=== PATIENT | female | born 1990 | race Caucasian/White ===

== ENCOUNTER 2025-04-16 11:35 | Inpatient (IN) | payer MEDICAID, OTHER ==
[2025-04-16] VITALS (14 sets, daily range): BP systolic 68–144; BP diastolic 29–79; PULSE 39–146; RESP 14–46; TEMP 36.6–37.1; O2SAT 78–94
[~2025-04-16] VITALS: Ht 157.5 cm; Wt 51.7 kg
[~2025-04-16 11:35] MED LIST: ACET-2708 PO; ALBU90AE IH; FAMO20TA8 PO; FURO-151 MT; LEVA0.635 IH; LORA-250; P20 MT; POTA-205 MT; PROM6.2527 PO; TRAM50TA3 PO
[2025-04-16] MEDS ORDERED: IPRATROPIUM/ALBUTEROL 0.5-3(2.5)MG/3ML NEB HHN ONE (12:00)
[2025-04-16] MEDS: SODIUM CHLORIDE 0.9% 1,000 ML IV ONE ×2 (12:06→13:57)
[2025-04-16] MEDS: VANCOMYCIN 1G PREMIX 200 ML IV ONE (12:06)
[2025-04-16] MEDS: MIDAZOLAM HCL 2 MG/2 ML VIAL IV ONE ×2 (12:07→14:35)
[2025-04-16] MEDS: PIPERACILLIN/TAZO 3.375G/50ML 50 ML IV ONE (12:08)
[2025-04-16 12:09] LABS: BASOPHILS % 0.3 % (0.0-2.0); EOSINOPHILS % 0.4 % (0.0-5.0); HEMATOCRIT. 47.3 % (36.0-48.0); HEMOGLOBIN. 14.9 g/dL (12.0-16.0); LYMPHOCYTES % 7.8 % (20.0-50.0); MEAN CORPUSCULAR HEMOGLOBIN 26.2 pg (28.0-32.0); MEAN CORPUSCULAR HGB CONC 31.5 g/dL (31.0-37.0); MEAN CORPUSCULAR VOLUME 83.2 fL (81.0-99.0); MEAN PLATELET VOLUME 9.4 fl (7.4-10.4); MONOCYTES % 4.5 % (2.0-8.0); PLATELET 419 x1000/uL (130-400); RED BLOOD CELL COUNT 5.68 mill/uL (4.2-5.4); RED CELL DISTRIBUTION WIDTH 17.9 % (11.6-14.6); WHITE BLOOD COUNT 17.8 x1000/uL (4.5-11.0)
[2025-04-16 12:32] LABS: D-DIMER 14.02 mg/L FEU (<0.50); INR 1.2; PROTHROMBIN TIME 13.1 sec (9.6-11.0)
[2025-04-16 12:33] LABS: CHLORIDE 87 mEq/L (98-107); POTASSIUM 4.5 mEq/L (3.5-5.1); SODIUM 136 mEq/L (136-145)
[2025-04-16 12:35] LABS: CALCIUM 9.8 mg/dL (8.7-10.4); CARBON DIOXIDE 32 mEq/L (21-32)
[2025-04-16 12:40] LABS: GLUCOSE 118 mg/dL (70-105); UREA NITROGEN BLOOD 32 mg/dL (9-23)
[2025-04-16 12:42] LABS: ALANINE AMINOTRANSFERASE 118 IU/L (10-49); ALBUMIN 3.8 g/dL (3.2-4.8); ASPARTATE AMINOTRANSFERASE 161 IU/L (<34); BILIRUBIN DIRECT 0.2 mg/dL (<=3.0); BILIRUBIN TOTAL 0.5 mg/dL (0.1-1.0)
[2025-04-16 12:48] LABS: TROPONIN I HIGH SENSITIVITY 4190 ng/L (3.0-34)
[2025-04-16] MEDS: METHYLPREDNISOLONE SOD SUCC 125MG/2ML (ACT-O-VIAL) IV ONE (12:56)
[2025-04-16 13:12] LABS: BG BASE EXCESS 5.3 mmol/L (-2.0-3.0); BG CARBOXYHEMOGLOBIN 0.9 % (0.5-1.5); BG DEOXYHEMOGLOBIN 0.7 % (0.0-5.0); BG FRACTION INSPIRED OXYGEN 80; BG HCO3 ACT 31.3 mmol/L (21.0-28.0); BG METHEMOGLOBIN 0.2 % (0.5-1.5); BG OXYGEN SATURATION 99.3 % (94.0-98.0); BG OXYHEMOGLOBIN 98.2 % (94.0-98.0); BG PCO2 50.8 mmHg (32.0-45.0); BG PH 7.408 (7.350-7.450); BG PO2 147.5 mmHg (83.0-108.0); BG SAMPLE SITE RIGHT RADIAL; BG TOTAL HEMOGLOBIN 15.3 g/dL (12.0-16.0); BG VENT MODE MASK - BIPAP
[2025-04-16] MEDS ORDERED: PHENYLEPHRINE 50 MG in DEXT 5% WATER 245 ML IV PRN (13:30)
[2025-04-16] MEDS: PHENYLEPHRINE 50MG/250ML PMX 250 ML IV PRN (13:45)
[2025-04-16] MEDS: ONDANSETRON HCL 4MG/2ML INJ ONE (14:19)
[2025-04-16] MEDS ORDERED: PROPOFOL 10MG/ML 100ML 100 ML IV PRN ×2 (14:30→17:00)
[2025-04-16] MEDS: NOREPINEPHRINE 8MG/250ML PMX 250 ML IV ONE ×2 (14:34→14:35)
[2025-04-16] MEDS: MIDAZOLAM 100MG/100ML PMX 100 ML IV PRN (14:35)
[2025-04-16] MEDS ORDERED: EPINEPHRINE 10 MG in SODIUM CHLORIDE 0.9% 240 ML IV STA (14:47)
[2025-04-16] MEDS ORDERED: HEPARIN 25,000 UNITS PREMIX 250 ML IV PRN (15:00)
[2025-04-16] MEDS ORDERED: VASOPRESSIN 20 UNIT in SODIUM CHLORIDE 0.9% 99 ML IV PRN (15:00)
[2025-04-16] MEDS ORDERED: PANTOPRAZOLE SODIUM 40 MG/VIAL IV SCH (15:15)
[2025-04-16] MEDS ORDERED: EPINEPHRINE 10 MG in SODIUM CHLORIDE 0.9% 250 ML IV PRN (15:15)
[2025-04-16] MEDS ORDERED: HEPARIN 25,000 UNITS PREMIX 250 ML IV SCH ×2 (15:15→16:00)
[2025-04-16] MEDS ORDERED: HEPARIN 80 UNITS/KG BOLUS IV SCH ×2 (15:15)
[2025-04-16] MEDS ORDERED: EPINEPHRINE 10 MG in SODIUM CHLORIDE 0.9% 240 ML IV PRN ×2 (15:15→17:00)
[2025-04-16] MEDS ORDERED: HEPARIN BOLUS PRN aPTT 37-44 IV ×3 (15:15→21:30)
[2025-04-16] MEDS ORDERED: HEPARIN BOLUS PRN aPTT <36 IV ×3 (15:15→21:30)
[2025-04-16 15:17] LABS: HEMATOCRIT. 38.4 % (36.0-48.0); MEAN CORPUSCULAR HGB CONC 31.4 g/dL (31.0-37.0); MEAN CORPUSCULAR VOLUME 86.1 fL (81.0-99.0); MEAN PLATELET VOLUME 9.4 fl (7.4-10.4); PLATELET 320 x1000/uL (130-400); RED BLOOD CELL COUNT 4.46 mill/uL (4.2-5.4); RED CELL DISTRIBUTION WIDTH 17.6 % (11.6-14.6); WHITE BLOOD COUNT 14.7 x1000/uL (4.5-11.0)
[2025-04-16 15:19] LABS: DIFFERENTIAL COMMENT 1
[2025-04-16] MEDS: VASOPRESSIN 20 UNIT in SODIUM CHLORIDE 0.9% 99 ML IV PRN (15:19)
[2025-04-16] MEDS: ONDANSETRON HCL 4MG/2ML INJ IV ONE (15:21)
[2025-04-16 15:27] LABS: CHLORIDE 98 mEq/L (98-107); SODIUM 138 mEq/L (136-145)
[2025-04-16 15:28] LABS: CARBON DIOXIDE 27 mEq/L (21-32)
[2025-04-16 15:29] LABS: CALCIUM 7.7 mg/dL (8.7-10.4)
[2025-04-16 15:31] LABS: INR 1.2; PARTIAL THROMBOPLASTIN TIME 29.6 sec (23.4-31.0); PROTHROMBIN TIME 12.4 sec (9.6-11.0)
[2025-04-16] MEDS: EPINEPHRINE 5 MG in SODIUM CHLORIDE 0.9% 245 ML IV STA (15:31)
[2025-04-16] MEDS: EPINEPHRINE 10 MG in SODIUM CHLORIDE 0.9% 240 ML IV STA (15:31)
[2025-04-16 15:33] LABS: CREATININE 1.1 mg/dL (0.6-1.0); GLUCOSE 181 mg/dL (70-105)
[2025-04-16 15:34] LABS: UREA NITROGEN BLOOD 33 mg/dL (9-23)
[2025-04-16 15:35] LABS: ALANINE AMINOTRANSFERASE 109 IU/L (10-49); ALBUMIN 2.7 g/dL (3.2-4.8); ASPARTATE AMINOTRANSFERASE 161 IU/L (<34)
[2025-04-16 15:36] LABS: BILIRUBIN DIRECT 0.2 mg/dL (<=3.0); BILIRUBIN TOTAL 0.4 mg/dL (0.1-1.0)
[2025-04-16 15:40] LABS: MICROCYTOSIS 1+; NUCLEATED RED BLOOD CELLS 4 /100 WBC; PLATELET ESTIMATE NORMAL; PROTEIN TOTAL 4.8 g/dL (6.0-8.3)
[2025-04-16 15:41] LABS: TROPONIN I HIGH SENSITIVITY 6613 ng/L (3.0-34)
[2025-04-16] MEDS ORDERED: GUAIFENESIN 200MG/10ML SUGAR FREE UDC PO PRN (15:45)
[2025-04-16] MEDS ORDERED: DOCUSATE SODIUM 100MG CAPSULE PO PRN (15:45)
[2025-04-16] MEDS ORDERED: CLONIDINE 0.1MG TABLET PO PRN (15:45)
[2025-04-16] MEDS ORDERED: MAGNESIUM/ALUMINUM HYDROXIDE/SIMETHICONE 30ML UDC PO PRN (15:45)
[2025-04-16] MEDS ORDERED: ONDANSETRON HCL 4MG/2ML INJ IV PRN (15:45)
[2025-04-16] MEDS ORDERED: ACETAMINOPHEN 325MG TABLET PO PRN (15:45)
[2025-04-16] MEDS ORDERED: DEXTROSE 50% WATER 50ML SYRINGE IV PRN (15:45)
[2025-04-16] MEDS ORDERED: IPRATROPIUM/ALBUTEROL 0.5-3(2.5)MG/3ML NEB HHN PRN (15:58)
[2025-04-16] MEDS ORDERED: ALBUMIN HUMAN 12.5GM/50ML (25%) IV NR (16:00)
[2025-04-16] MEDS ORDERED: METHYLPREDNISOLONE SOD SUCC 125MG/2ML (ACT-O-VIAL) IV SCH (16:00)
[2025-04-16] MEDS ORDERED: HYDROCORTISONE SOD SUCCINATE 100 MG/2 ML VIAL IV NR (16:00)
[2025-04-16] MEDS ORDERED: DEXT 5%/0.9% NACL 1,000 ML IV SCH ×2 (16:15→18:40)
[2025-04-16] MEDS ORDERED: SODIUM CHLORIDE 0.9% 1,000 ML IV ONE (16:30)
[2025-04-16] MEDS: DEXMEDETOMIDINE 400 MCG/100 ML 100 ML IV PRN (16:33)
[2025-04-16 16:44] LABS: HCG SCREEN NEGATIVE
[2025-04-16 16:49] LABS: PHOSPHORUS 6.2 mg/dL (2.5-4.9)
[2025-04-16] MEDS ORDERED: BLOOD SUGAR DIAGNOSTIC STRIP TEST SCH (17:00)
[2025-04-16] MEDS: MIDAZOLAM HCL 2 MG/2 ML VIAL IV SCH (17:04)
[2025-04-16] MEDS ORDERED: MORPHINE SULFATE 4 MG/ML INJ (FOR IV/IM USE) IV SCH (17:30)
[2025-04-16] MEDS ORDERED: NALOXONE HCL 0.4MG/ML VIAL IV PRN (17:30)
[2025-04-16] MEDS ORDERED: AZITHROMYCIN 500MG/250ML 250 ML IV SCH (18:00)
[2025-04-16] MEDS ORDERED: IPRATROPIUM/ALBUTEROL 0.5-3(2.5)MG/3ML NEB HHN SCH (18:00)
[2025-04-16] MEDS: NOREPINEPHRINE 8MG/250ML PMX 250 ML IV PRN (18:03)
[2025-04-16] MEDS ORDERED: MIDAZOLAM 100MG/100ML PMX 100 ML IV PRN (18:45)
[2025-04-16] MEDS ORDERED: SODIUM BICARBONATE 150 MEQ in DEXTROSE 5% WATER 850 ML IV SCH (20:00)
[2025-04-16] MEDS ORDERED: VANCOMYCIN 750MG PREMIX 150 ML IV SCH (21:00)
[2025-04-16] MEDS ORDERED: PIPERACILLIN/TAZO 3.375G/50ML 50 ML IV SCH (22:00)
== END 2025-04-16 19:20 | DRG 720 ==
LOC: ER 11:44 → CVICU 14:44 → EDBEDREQTM 14:46 → EDBEDREQ 14:46 → ENRESERV 14:54
PROVIDERS: ADMIT Internal Medicine; ATTEND Internal Medicine
PROC: 0BH17EZ Insertion of Endotracheal Airway into Trachea, Via Natural or Artificial Opening (ICD-10-PCS; principal; 2025-04-16)
PROC: 5A1935Z Respiratory Ventilation, Less than 24 Consecutive Hours (ICD-10-PCS; 2025-04-16)
PROC: 5A09357 Assistance with Respiratory Ventilation, Less than 24 Consecutive Hours, Continuous Positive Airway Pressure (ICD-10-PCS; 2025-04-16)
PROC: 5A12012 Performance of Cardiac Output, Single, Manual (ICD-10-PCS; 2025-04-16)
PROC: 02HV33Z Insertion of Infusion Device into Superior Vena Cava, Percutaneous Approach (ICD-10-PCS; 2025-04-16)
PROC: B548ZZA Ultrasonography of Superior Vena Cava, Guidance (ICD-10-PCS; 2025-04-16)
DX: A41.9 Sepsis, unspecified organism (principal); J96.21 Acute and chronic respiratory failure with hypoxia; R65.21 Severe sepsis with septic shock; I21.4 Non-ST elevation (NSTEMI) myocardial infarction; G93.41 Metabolic encephalopathy; J18.9 Pneumonia, unspecified organism; E87.29 Other acidosis; N17.9 Acute kidney failure, unspecified; Z66 Do not resuscitate; J45.909 Unspecified asthma, uncomplicated; J96.22 Acute and chronic respiratory failure with hypercapnia; Z85.118 Personal history of other malignant neoplasm of bronchus and lung; Z85.43 Personal history of malignant neoplasm of ovary; Z86.711 Personal history of pulmonary embolism
CPT/HCPCS: 31500; 36415; 36556; 36600; 71045; 80048; 80076; 82375; 82805; 82962; 83036; 83605; 83735; 83880; 84100; 84145; 84484; 84703; 85025; 85379; 93005; 94070; 94660; 99291; A4606; J0456; J1644; J1720; J2250; J2405; J2543; J2704; J2919; J3370; J3490; J7030; J7050; J7070; P9047